=== PATIENT | male | born 1990 | race Caucasian/White ===

== ENCOUNTER 2020-09-08 05:23 | Emergency (ER) | payer BC ==
[~2020-09-08] VITALS: Ht 182.9 cm; Wt 101.0 kg
[2020-09-08] MEDS ORDERED: ACETAMINOPHEN 325 MG TABLET ONE (05:40)
--- NOTE | 2020-09-08 05:40 | NUR ---
PA AT BEDSIDE FOR ASSESSMENT
[2020-09-08] MEDS ORDERED: ACETAMINOPHEN 325 MG TABLET PO ONE (06:00)
--- NOTE | 2020-09-08 06:49 | NUR ---
BEDSIDE REPORT RECEIVED FROM MELISSA CRONIN
[2020-09-08 07:00] VITALS: BP 121/58
--- NOTE | 2020-09-08 07:00 | NUR ---
Patient given discharge instructions and they have confirmed that they understand the instructions. Patient ambulatory with steady gait.
== END 2020-09-08 07:02 | disposition home or self-care (01) ==
LOC: ED 06:27
DX: S53.401A Unspecified sprain of right elbow, initial encounter (principal); W18.39XA Other fall on same level, initial encounter; Y93.89 Activity, other specified; Y92.488 Other paved roadways as the place of occurrence of the external cause; Y99.8 Other external cause status
CPT/HCPCS: 99283